=== PATIENT | male | born 1965 | race American Indian/Alaskan Native ===

== ENCOUNTER 2019-06-17 09:52 | Emergency (ER) | payer MEDICAID, OTHER ==
[2019-06-17 10:37] VITALS: BP 150/119; PULSE 71
--- NOTE | 2019-06-17 10:37 | EDM.PDOCBH ---
ED HPI GENERAL MEDICAL PROBLEM - General Chief Complaint: Drug or Alcohol Abuse Stated Complaint: ELIZABETH MO Time Seen by Provider: 06/17/19 10:35 Source of Information: Reports: Patient, RN Notes Reviewed History Limitations: Reports: No Limitations - History of Present Illness INITIAL COMMENTS - FREE TEXT/NARRATIVE: 53-year-old gentleman presents emergency department today requesting detox, he states he has been to detox in the past used he has bad withdrawal symptoms. Last use of alcohol was last night with vodka no other complaints at this time - Related Data Allergies Allergy/AdvReac Type Severity Reaction Status Date / Time No Known Allergies Allergy Verified 06/17/19 10:12 Home Meds: Home Meds Baclofen 10 mg PO BID 06/17/19 [History] Gabapentin [Neurontin] 300 mg PO BID 06/17/19 [History] busPIRone [Buspar] 10 mg PO DAILY 06/17/19 [History] Past Medical History Other HEENT History: Ear problems as child Other Musculoskeletal History: nose Psychiatric History: Reports: Addiction Social & Family History - Tobacco Use Smoking Status *Q: Current Every Day Smoker Years of Tobacco use: 40 Packs/Tins Daily: 0.5 - Alcohol Use Days Per Week of Alcohol Use: 7 Number of Drinks Per Day: 8 Total Drinks Per Week: 56 - Recreational Drug Use Recreational Drug Use: No ED ROS GENERAL - Review of Systems Review Of Systems: See Below Constitutional: Reports: No Symptoms HEENT: Reports: No Symptoms Respiratory: Reports: No Symptoms Cardiovascular: Reports: No Symptoms GI/Abdominal: Reports: No Symptoms ED EXAM, BEHAVIORAL HEALTH - Physical Exam Exam: See Below Exam Limited By: No Limitations General Appearance: Alert, WD/WN, No Apparent Distress Respiratory/Chest: No Respiratory Distress, Lungs Clear, Normal Breath Sounds, No Accessory Muscle Use, Chest Non-Tender Cardiovascular: Regular Rate, Rhythm, No Murmur GI/Abdominal: Soft, Non-Tender COURSE, BEHAVIORAL HEALTH COMP - Course Vital Signs: Last Vital Signs Temp 99.6 F 06/17/19 10:14 Pulse 71 06/17/19 10:14 Resp 22 H 06/17/19 10:14 BP 150/119 H 06/17/19 10:14 Pulse Ox 94 L 06/17/19 10:14 Orders, Labs, Meds: Laboratory Tests 06/17/19 06/17/19 Range/Units 10:27 10:29 Urine Opiates Screen Negative (NEGATIVE) Ur Oxycodone Screen Negative (NEGATIVE) Urine Methadone Screen Negative (NEGATIVE) Ur Propoxyphene Screen Negative (NEGATIVE) Ur Barbiturates Screen Negative (NEGATIVE) Ur Tricyclics Screen Negative (NEGATIVE) Ur Phencyclidine Scrn Negative (NEGATIVE) Ur Amphetamine Screen Negative (NEGATIVE) U Methamphetamines Scrn Negative (NEGATIVE) Urine MDMA Screen Negative (NEGATIVE) U Benzodiazepines Scrn Negative (NEGATIVE) U Cocaine Metab Screen Negative (NEGATIVE) U Marijuana (THC) Screen Negative (NEGATIVE) Ethyl Alcohol 25 mg/dL Departure - Departure Time of Disposition: 11:22 Disposition: DC/Tfer to Inpt Rehab Fac 62 Condition: Poor Clinical Impression: Alcohol abuse - Discharge Information Referrals: PCP,None [Primary Care Provider] - Forms: ED Department Discharge Additional Instructions: Please report to [facility] detox[facility] facility for further treatment - Assessment/Plan Plan: Assessment Acuity = acute Site and laterality = alcohol abuse Etiology = EtOH Manifestations = none Location of injury = Home Lab values = urine drug screen negative alcohol is a 25 Plan [facility] did accept him he will be transported to [facility] facility This note was dictated using [email or web address] voice recognition software please call with any questions on syntax or grammar.
== END 2019-06-17 11:44 ==
LOC: JP.ED 09:52
DX: F10.10 Alcohol abuse, uncomplicated (principal); F17.210 Nicotine dependence, cigarettes, uncomplicated; Y90.1 Blood alcohol level of 20-39 mg/100 ml
CPT/HCPCS: 36415; 80305-QW; 99283; 99284; G0480

== ENCOUNTER 2022-05-24 10:48 | Emergency (ER) | payer MEDICAID ==
[2022-05-24 11:42] VITALS: BP 144/95; PULSE 93
== END 2022-05-24 13:36 | disposition other institution (70) ==
LOC: JP.ED 10:48
DX: S00.03XA Contusion of scalp, initial encounter (principal); F10.920 Alcohol use, unspecified with intoxication, uncomplicated; Z20.822 Contact with and (suspected) exposure to COVID-19; Z88.8 Allergy status to other drugs, medicaments and biological substances; Z79.899 Other long term (current) drug therapy; W19.XXXA Unspecified fall, initial encounter
CPT/HCPCS: 36415; 80048; 80305-QW; 80307; 85025; 99284; U0002

== ENCOUNTER 2023-12-11 11:08 | Emergency (ER) | payer MEDICAID ==
[~2023-12-11 11:08] MED LIST: Gabapentin 300 MG Cap PO SCH; Mirtazapine 15 MG Tab PO SCH
[2023-12-11 12:47] LABS: AMPHETAMINES SCREEN, URINE NEGATIVE (NEGATIVE); BARBITURATE SCREEN,URINE NEGATIVE (NEGATIVE); BENZODIAZEPINES SCREEN,URINE NEGATIVE (NEGATIVE); METHADONE SCREEN, URINE NEGATIVE (NEGATIVE); METHAMPHETAMINES SCREEN, URINE NEGATIVE (NEGATIVE); OXYCODONE SCREEN,URINE NEGATIVE (NEGATIVE); PROPOXYPHENE SCREEN,URINE NEGATIVE (NEGATIVE); THC SCREEN,URINE 50 NG/ML NEGATIVE (NEGATIVE)
[2023-12-11 13:05] LABS: CALCIUM 8.5 mg/dL (8.5-10.1); CREATININE 0.9 mg/dL (0.8-1.3); EST CRCL DRUG DOSING (CG) 87.61 mL/min; MAGNESIUM 1.5 mg/dL (1.8-2.4); POTASSIUM,K 3.2 mmol/L (3.6-5.2)
[2023-12-11 13:31] LABS: ANION GAP 22.2 mmol/L (5.0-14.0)
[2023-12-11] MEDS ORDERED: MVI, Adult with Vitamin K 10 ML, Thiamine 100 MG, Folic Acid 1 MG, Magnesium Sulfate 3 ... IV SCH (14:00)
[2023-12-11 14:50] VITALS: BP 125/86; PULSE 97
[2023-12-11] MEDS: MVI, Adult with Vitamin K 10 ML, Thiamine 100 MG, Folic Acid 1 MG, Magnesium Sulfate 3 ... IV ONE (15:04)
[2023-12-11] MEDS: Potassium Chloride 20 MEQ Tab.ER PO SCH (15:04)
[2023-12-11] MEDS: Sodium Chloride 0.9% 10 ML Syringe FLUSH PRN (15:05)
== END 2023-12-11 17:50 | disposition other institution (70) ==
LOC: JP.ED 11:08
DX: F10.120 Alcohol abuse with intoxication, uncomplicated (principal); E11.9 Type 2 diabetes mellitus without complications; J44.9 Chronic obstructive pulmonary disease, unspecified; Z88.8 Allergy status to other drugs, medicaments and biological substances; Z87.891 Personal history of nicotine dependence; Z79.899 Other long term (current) drug therapy
CPT/HCPCS: 36415; 80048; 80305; 80307; 83735; 96365; 96366; 99284; A9270; J3411; J3475; J3490; J7030

== ENCOUNTER 2024-11-11 16:13 | Emergency (ER) | payer MEDICAID, OTHER ==
[2024-11-11] MEDS ORDERED: Sodium Chloride 0.9% 10 ML Syringe FLUSH PRN (16:43)
[2024-11-11 16:49] LABS: BASOPHILS ABSOLUTE AUTO 0.02 K/uL (0.00-0.10); BASOPHILS PERCENT AUTO 0.3 % (0.1-1.3); EOSINOPHILS ABSOLUTE AUTO 0.28 K/uL (0.00-0.40); EOSINOPHILS PERCENT AUTO 4.3 % (0.0-5.4); HEMATOCRIT 46.1 % (38.4-49.7); HEMOGLOBIN 15.8 g/dL (12.9-16.9); IMMATURE GRAN ABSOLUTE AUTO 0.02 K/uL (0.00-0.23); IMMATURE GRAN PERCENT AUTO 0.3 % (0.0-0.7); LYMPHOCYTES ABSOLUTE AUTO 2.63 K/uL (0.8-3.3); LYMPHOCYTES PERCENT AUTO 40.4 % (11.4-47.7); MEAN CORPUSCULAR HEMOGLOBIN 33.6 pg (31.6-35.5); MEAN CORPUSCULAR HGB CONC 34.3 g/dL (31.6-35.5); MEAN CORPUSCULAR VOLUME 98.1 fL (81.4-99.0); MONOCYTES ABSOLUTE AUTO 0.72 K/uL (0.20-0.90); MONOCYTES PERCENT AUTO 11.1 % (3.3-12.6); NEUTROPHILS ABSOLUTE AUTO 2.84 K/uL (1.0-7.6); NEUTROPHILS PERCENT AUTO 43.6 % (40.0-78.1); PLATELET COUNT,PLT 139 K/uL (130-375); WHITE BLOOD CELL COUNT,WBC 6.5 K/uL (3.2-11.0)
[2024-11-11 16:51] LABS: ANION GAP 11.5 mmol/L (5.0-14.0); CALCIUM 8.4 mg/dL (8.5-10.1); CREATININE 0.9 mg/dL (0.8-1.3); EST CRCL DRUG DOSING (CG) 89.47 mL/min; POTASSIUM,K 4.3 mmol/L (3.6-5.2)
[2024-11-11] MEDS: Sodium Chloride 0.9% 1,000 ML IV ONE (16:55)
[2024-11-11] MEDS: PHENobarbital Sodium 65 MG/ML SDV IVPUSH ONE (17:46)
[2024-11-11 19:27] LABS: AMPHETAMINES SCREEN, URINE NEGATIVE (NEGATIVE); BARBITURATE SCREEN,URINE NEGATIVE (NEGATIVE); BENZODIAZEPINES SCREEN,URINE PRESUMPTIVE POSITIVE (NEGATIVE); METHADONE SCREEN, URINE NEGATIVE (NEGATIVE); METHAMPHETAMINES SCREEN, URINE NEGATIVE (NEGATIVE); OXYCODONE SCREEN,URINE NEGATIVE (NEGATIVE); PROPOXYPHENE SCREEN,URINE NEGATIVE (NEGATIVE); THC SCREEN,URINE 50 NG/ML NEGATIVE (NEGATIVE)
[2024-11-12] MEDS ORDERED: Diazepam 5 MG Tab PO SCH
[2024-11-12 04:44] VITALS: BP 124/68; PULSE 86
== END 2024-11-12 09:06 | disposition other institution (70) ==
LOC: JP.ED 16:13
DX: F10.120 Alcohol abuse with intoxication, uncomplicated (principal); E11.9 Type 2 diabetes mellitus without complications; Z88.8 Allergy status to other drugs, medicaments and biological substances; Z79.899 Other long term (current) drug therapy; Y90.8 Blood alcohol level of 240 mg/100 ml or more
CPT/HCPCS: 36415; 70450; 80048; 80305; 80307; 85025; 96374; 99285; A9270; J2560; J7030; 99283

== ENCOUNTER 2024-12-11 15:42 | Emergency (ER) | payer MEDICAID ==
[2024-12-11 15:48] VITALS: BP 143/90; PULSE 95
[2024-12-11 16:48] LABS: BASOPHILS ABSOLUTE AUTO 0.04 K/uL (0.00-0.10); BASOPHILS PERCENT AUTO 0.6 % (0.1-1.3); EOSINOPHILS ABSOLUTE AUTO 0.06 K/uL (0.00-0.40); EOSINOPHILS PERCENT AUTO 0.9 % (0.0-5.4); HEMOGLOBIN 16.8 g/dL (12.9-16.9); IMMATURE GRAN ABSOLUTE AUTO 0.04 K/uL (0.00-0.23); IMMATURE GRAN PERCENT AUTO 0.6 % (0.0-0.7); LYMPHOCYTES ABSOLUTE AUTO 1.81 K/uL (0.8-3.3); LYMPHOCYTES PERCENT AUTO 26.7 % (11.4-47.7); MEAN CORPUSCULAR HEMOGLOBIN 33.9 pg (31.6-35.5); MEAN CORPUSCULAR HGB CONC 34.3 g/dL (31.6-35.5); MEAN CORPUSCULAR VOLUME 98.8 fL (81.4-99.0); MONOCYTES ABSOLUTE AUTO 0.53 K/uL (0.20-0.90); MONOCYTES PERCENT AUTO 7.8 % (3.3-12.6); NEUTROPHILS PERCENT AUTO 63.4 % (40.0-78.1); PLATELET COUNT,PLT 132 K/uL (130-375); RED BLOOD CELL COUNT 4.96 M/uL (4.14-5.76); WHITE BLOOD CELL COUNT,WBC 6.8 K/uL (3.2-11.0)
[2024-12-11 17:20] LABS: A/G RATIO 0.9 (1.2-2.2); ALANINE AMINOTRANSFERASE,ALT 86 U/L (12-78); ALKALINE PHOSPHATASE 101 U/L (46-116); ANION GAP 16.8 mmol/L (5.0-14.0); ASPARTATE AMNIOTRANSFERASE,AST 78 U/L (15-37); BLOOD UREA NITROGEN,BUN 15 mg/dL (7-18); CALCIUM 8.5 mg/dL (8.5-10.1); CARBON DIOXIDE,CO2 25 mmol/L (21-32); CHLORIDE,CL 101 mmol/L (100-108); CREATININE 0.8 mg/dL (0.8-1.3); EST CRCL DRUG DOSING (CG) 100.65 mL/min; ESTIMATED GFR 103 mL/min (>60); GLUCOSE RANDOM 78 mg/dL (74-106); POTASSIUM,K 3.6 mmol/L (3.6-5.2); PROTEIN TOTAL,TP 8.6 g/dL (6.4-8.2); SODIUM,NA 143 mmol/L (140-148)
[2024-12-11 17:28] LABS: AMPHETAMINES SCREEN, URINE NEGATIVE (NEGATIVE); BARBITURATE SCREEN,URINE PRESUMPTIVE POSITIVE (NEGATIVE); BENZODIAZEPINES SCREEN,URINE PRESUMPTIVE POSITIVE (NEGATIVE); METHADONE SCREEN, URINE NEGATIVE (NEGATIVE); METHAMPHETAMINES SCREEN, URINE NEGATIVE (NEGATIVE); OXYCODONE SCREEN,URINE NEGATIVE (NEGATIVE); PROPOXYPHENE SCREEN,URINE NEGATIVE (NEGATIVE); THC SCREEN,URINE 50 NG/ML NEGATIVE (NEGATIVE)
== END 2024-12-11 19:04 | disposition home or self-care (01) ==
LOC: JP.ED 15:42
DX: F10.10 Alcohol abuse, uncomplicated (principal); J44.9 Chronic obstructive pulmonary disease, unspecified; E11.9 Type 2 diabetes mellitus without complications; E66.9 Obesity, unspecified; F17.210 Nicotine dependence, cigarettes, uncomplicated; Z68.38 Body mass index [BMI] 38.0-38.9, adult; Z88.8 Allergy status to other drugs, medicaments and biological substances; Z79.899 Other long term (current) drug therapy; Y90.8 Blood alcohol level of 240 mg/100 ml or more
CPT/HCPCS: 36415; 80053; 80305-QW; 80307; 85025; 99283; 99284